=== PATIENT | female | born 1960 | race African-American/Black ===

== ENCOUNTER 2018-07-28 21:37 | Emergency (ER) | payer OTHER ==
[2018-07-28] MEDS ORDERED: KETOROLAC TROMETHAMINE 60 MG/2 ML VIAL ONE (21:57)
[2018-07-28] MEDS ORDERED: KETOROLAC TROMETHAMINE 60 MG/2 ML VIAL IM ONE (21:58)
[2018-07-28 22:12] VITALS: BP 190/87; PULSE 71; TEMP 98.7; BMI 43.8
--- NOTE | 2018-07-29 21:04 | PDOC ---
Documentation entered by Jeromy Katz SCRIBE, acting as scribe for Main Napier MD. Mani Napier MD: This documentation has been prepared by the Gianna rogers Xhesika, SCRIBE, under my direction and personally reviewed by me in its entirety. I confirm that the documentation accurately reflects all work, treatment, procedures, and medical decision making performed by me. History of Present Illness - General Chief Complaint: Pain Stated Complaint: SWOLLEN AND PAINFUL RIGHT FOOT X 5 DAYS History Source: Patient Exam Limitations: No Limitations - History of Present Illness Initial Comments: 07/28/18 21:49 Assessment plan: This is a 57-year-old obese female who with history of chronic intermittent right foot pain on the dorsum of her foot and her heel. Patient has been to multiple doctors including a blasting contract man her primary care doctor and a orthopedist all of which have given her number different diagnosis is but she said the pain keeps coming back so she now comes in because of the pain. Patient is only been taking Tylenol for the pain. Workup was not done as patient has had multiple workups and seen multiple doctors for this symptoms. Patient will be treated with Toradol and discharged. I told patient to start taking an anti-inflammatory such as Aleve and call her primary care doctor in the morning for referral to another orthopedist if her orthopedist that she has is not helping her 07/28/18 21:58 The patient is a 57 year old female, with a significant past medical history of intermittent right foot pain who presents to the emergency department with 5 days of right foot pain. The patient states her right foot pain has been intermittent for a couple of months, however, this time it has lasted longer than the previous times. The patient states she has seen her PCP, blasting contract man, and orthopedists, but her symptoms have yet to be diagnosed. The patient is enduring right foot swelling, right foot pain with putting weight on foot and with movement. The patient states she has taken tylenol with no relief. The patient denies chest pain, shortness of breath, headache or dizziness. The patient denies fever, chills, nausea, vomit, diarrhea or constipation. The patient denies dysuria, frequency, urgency or hematuria. PAST MEDICAL HISTORY: no significant history PAST SURGICAL HISTORY: no significant history FAMILY HISTORY: no pertinent history SOCIAL HISTORY: Pt lives with family and is employed. MEDICATIONS: reviewed ALLERGIES: As per nursing notes Past History - Past Medical History Allergies/Adverse Reactions: Allergies Allergy/AdvReac Type Severity Reaction Status Date / Time No Known Allergies Allergy Verified 07/28/18 21:42 Home Medications: Ambulatory Orders Amlodipine Besylate 5 mg PO DAILY 07/28/18 Losartan Potassium 100 mg PO DAILY 07/28/18 Metoprolol Succinate 25 mg PO DAILY 07/28/18 Review of Systems - Review of Systems Able to Perform ROS?: Yes Comments:: 07/28/18 21:59 General: No fevers or chills, no weakness, no weight loss HEENT: No change in vision. No sore throat,. No ear pain CardioVascular: No chest pain or shortness of breath Respiratory:No cough, or wheezing. Gastrointestinal: no nausea, vomiting, diarrhea or constipation, No rectal bleeding Genitourinary: No dysuria, hematuria, or frequency Musculoskeletal: (+) right foot pain. (+) right foot swelling. Neurologic: No headache, vertigo, dizziness or loss of consciousness Psychiatric: nor depression Skin: No rashes or easy bruising Endocrine: no increased thirst or abnormal weight change Allergic: no skin or latex allergy All other systems reviewed and normal *Physical Exam - Physical Exam Comments: 07/28/18 21:59 GENERAL: The patient is awake, alert, and fully oriented, in no acute distress. HEAD: Normal with no signs of trauma. EYES: Pupils equal, round and reactive to light, extraocular movements intact, sclera anicteric, conjunctiva clear. EXTREMITIES: (+) mild swelling of dorsal of foot. (+) tenderness over palpation of dorsal of foot. Ankle is nontender bilaterally. Lower leg not swollen or tenderness of calf. Neurovascular intact. Normal range of motion, no edema. NEUROLOGICAL: Normal speech, normal gait. PSYCH: Normal mood, normal affect. SKIN: Warm, Dry, normal turgor, no rashes or lesions noted. *DC/Admit/Observation/Transfer Diagnosis at time of Disposition: Foot pain, right - Discharge Dispostion Disposition: HOME Condition at time of disposition: Stable - Referrals Referrals: Inocente Johnson MD [Primary Care Provider] - - Patient Instructions Additional Instructions: For the pain take an anti-inflammatory Aleve 2 tablets twice a day with food don 't take on an empty stomach Call your primary care doctor in the morning and discuss with your primary care doctor referral to a blasting contract man. Return to the emergency department immediately with ANY new, persistent or worsening symptoms. Continue any medications as previously prescribed by your physician. You should follow up with your primary doctor as soon as possible regarding today's emergency department visit. . Please make sure your doctor reviews the results of your emergency evaluation. Thank you for coming to the Emergency Department today for your care. It was a pleasure to see you today. Please note that your evaluation is INCOMPLETE until you follow-up with your doctor. - Post Discharge Activity
== END 2018-07-28 22:11 | disposition home or self-care (01) ==
LOC: FER 21:37
PROC: 3E0233Z Introduction of Anti-inflammatory into Muscle, Percutaneous Approach (ICD-10-PCS; principal; 2018-07-28)
DX: M79.671 Pain in right foot (principal)
CPT/HCPCS: 99281-25

== ENCOUNTER 2020-11-21 14:18 | Emergency (ER) | payer OTHER ==
[2020-11-21 14:34] VITALS: TEMP 98.9; BMI 39.1
[2020-11-21] MEDS ORDERED: CASIRIVIMAB/IMDEVIMAB 10 ML in SODIUM CHLORIDE 100 ML IVPB ONE (15:10)
[2020-11-21 21:43] LABS: EPI CELLS 27 /uL (0-25.1); HYALINE CASTS 3 /uL (0-3.1); URINE APPEARANCE CLEAR; URINE BACTERIA 274 /uL (0-1359); URINE BILIRUBIN NEGATIVE (NEGATIVE); URINE COLOR DK YELLOW; URINE GLUCOSE (UA) NEGATIVE (NEGATIVE); URINE KETONE 1+ (NEGATIVE); URINE LEUK ESTERASE NEGATIVE (NEGATIVE); URINE NITRITE NEGATIVE (NEGATIVE); URINE PROTEIN 1+ (NEGATIVE); URINE RBC 9 /uL (0-23.9); URINE WBC 25 /uL (0-25.8)
[2020-11-21] MEDS ORDERED: metoPROLOL SUCCINATE 25 MG TAB.SR.24H (FP) PO ONE (22:38)
[2020-11-21] MEDS ORDERED: amLODIPine BESYLATE 5 MG TABLET (FP) PO ONE (22:38)
[2020-11-21] MEDS ORDERED: METOPROLOL TARTRATE 25 MG TABLET (FP) ONE (22:39)
[2020-11-21] MEDS ORDERED: amLODIPine BESYLATE 5 MG TABLET (FP) ONE (22:39)
[2020-11-21 22:42] VITALS: PULSE 73
[2020-11-21 23:28] VITALS: BP 177/80
== END 2020-11-21 23:30 | disposition home or self-care (01) ==
LOC: JCOVINFU 14:18 → JER 14:18 → JCOVINFU 23:30
PROC: 3E033GC Introduction of Other Therapeutic Substance into Peripheral Vein, Percutaneous Approach (ICD-10-PCS; principal; 2020-11-21)
DX: U07.1 COVID-19 (principal); M71.21 Synovial cyst of popliteal space [Baker], right knee
CPT/HCPCS: 71045-TC-FY; 81003; 87086; 93970-TC; 99285-25; M0240; Q0240

== ENCOUNTER 2022-04-25 20:32 | Emergency (ER) | payer OTHER ==
[2022-04-25 20:55] VITALS: TEMP 98; BMI 40.7
[2022-04-25] MEDS ORDERED: cloNIDine HCL 0.1 MG TABLET PO ONE (21:43)
[2022-04-25] MEDS ORDERED: amLODIPine BESYLATE 5 MG TABLET (FP) PO ONE (21:44)
[2022-04-25] MEDS ORDERED: ACETAMINOPHEN 500 MG TABLET (FP) PO ONE (21:48)
[2022-04-25] MEDS ORDERED: ACETAMINOPHEN 325 MG TABLET (FP) ONE (21:49)
[2022-04-25] MEDS ORDERED: amLODIPine BESYLATE 5 MG TABLET (FP) ONE (21:49)
[2022-04-25] MEDS ORDERED: cloNIDine HCL 0.1 MG TABLET ONE (21:49)
[2022-04-25 23:27] VITALS: PULSE 86
[2022-04-26] VITALS: BP 139/61; RESP 18
== END 2022-04-26 | disposition home or self-care (01) ==
LOC: FER 20:32
DX: I10 Essential (primary) hypertension (principal)
CPT/HCPCS: 99283-25